=== PATIENT | female | born 1950 | race Caucasian/White ===

== ENCOUNTER 2021-11-03 13:53 | Emergency (ER) | payer MEDICARE, BC ==
[2021-11-03 17:06] LABS: ESTIMATED GFR 53 mL/min (>60)
== END 2021-11-03 18:39 | disposition home or self-care (01) ==
LOC: JP.ED 13:53
DX: J06.9 Acute upper respiratory infection, unspecified (principal); Z20.822 Contact with and (suspected) exposure to COVID-19
CPT/HCPCS: 36415; 71045; 80053; 85025; 99281; 99283; U0002